=== PATIENT | female | born 1975 | race African-American/Black ===

== ENCOUNTER 2020-03-27 08:52 | Outpatient (CLI) | payer OTHER, SELFPAY ==
--- NOTE | ~2020-03-27 | MM_ITS ---
EXAMINATION: MM screening [facility] BI w oanh HISTORY: Screening mammogram TECHNIQUE: Craniocaudal and mediolateral oblique 3-D tomosynthesis images were obtained and synthetic 2-D images were generated. CAD analysis was submitted and interpreted. COMPARISON: No prior mammogram is available for comparison at this institution. BREAST PARENCHYMAL COMPOSITION: The breasts are heterogeneously dense, which may obscure small masses . FINDINGS: There is no evidence of suspicious mass, calcification, or architectural distortion to sugg est malignancy in either breast. There has been no suspicious interval change. IMPRESSION: 1. No mammographic evidence of malignancy. 2. Recommend routine screening mammography in one year. BI-RADS Category 1: Negative Reviewed, dictated and finalized at location B.
== END 2020-03-27 08:53 | disposition home or self-care (01) ==
LOC: ANHIMG 08:56
PROVIDERS: PCP Emergency Medicine; Visit Provider Emergency Medicine
DX: Z12.31 Encounter for screening mammogram for malignant neoplasm of breast (principal)
CPT/HCPCS: 77063; 77067

== ENCOUNTER 2020-05-04 01:29 | Outpatient (CLI) | payer OTHER, SELFPAY ==
[2020-05-04 20:39] LABS: SARS-CoV-2 RNA PCR Negative
== END 2020-05-04 01:30 | disposition home or self-care (01) ==
LOC: ANHCOVIDDT 01:29
PROVIDERS: PCP Emergency Medicine; Visit Provider Surgery
DX: Z01.818 Encounter for other preprocedural examination (principal); Z20.828 Contact with and (suspected) exposure to other viral communicable diseases
CPT/HCPCS: 87635; C9803; U0003

== ENCOUNTER 2020-05-07 01:28 | Day surgery (SDC) | payer OTHER, SELFPAY ==
[2020-04-29 13:09] VITALS: BMI 29.2
[2020-05-07] VITALS (7 sets, daily range): BP systolic 99–129; BP diastolic 59–77; PULSE 64–86; RESP 11–14; TEMP 36.1–36.3; O2SAT 100
--- NOTE | 2020-05-07 06:58 | ECG_ITS ---
Measurements Intervals [place] Rate: 65 P: 7 WV: 180 QRS: 21 QRSD: 78 T: 10 QT: 373 QTc: 389 Interpretive Statements SINUS RHYTHM WITH SINUS ARRHYTHMIA NORMAL ECG Electronically Signed On 05-07-2020 14:41:47 HYDROLOGIST by Deangelo Nesbitt D.O.
--- NOTE | 2020-05-07 09:25 | WPDANESEPPF ---
Anes - Initial Pre Proc Eval Procedure: Operation Date: 05/07/20 11:00 Proposed Procedures p Rectal Exam Under Anesthesia, Hemorrhoidectomy - Annette Harvey MD Date/Time: 05/07/20 09:25 Surgeon: Annette Harvey MD Pre Op Diagnosis: external hemorrhoid Patient Data Age: 44 Gender: F Height: 5 ft 3 in Weight: 74.84 kg Allergies Allergy/AdvReac Type Severity Reaction Status Date / Time caffeine AdvReac Migraine Verified 04/29/20 13:11 coffee (Coffea arabica) AdvReac Migraine Verified 04/29/20 13:11 Home Medications Medication Instructions Recorded Confirmed Type Vitamin C 1 tablet PO DAILY 04/29/20 05/07/20 History Vitamin D3 1 tablet PO DAILY 04/29/20 05/07/20 History atorvastatin 10 mg tablet 10 mg PO DAILY 04/29/20 05/07/20 History latanoprost 0.005 % eye drops 1 drp OPHTHALMIC (EYE) DAILY 04/29/20 05/07/20 History propranolol 60 mg capsule,24 60 mg PO DAILY 04/29/20 05/07/20 History hr,extended release rizatriptan 10 mg tablet 10 mg PO ONCE PRN 04/29/20 05/07/20 History Patient hx anesthesia problems: none Family hx anesthesia problems: none PMFSH Past Medical History Medical History Hx of migraines Hyperlipidemia Surgical History Surgical History History of hysterectomy Family History Family History Mother Hypertension Social History Social History Smoking status: Never smoker Alcohol intake: current Spiritual care concerns: No Anes - Eval Final PreProcedure Day of Procedure 05/07/20 09:25 Patient weight: overweight Heart: regular rate and rhythm Lungs: clear to auscultation Airway: Mallampati scale class II Neurological: alert and oriented Last oral intake: >/= 8 hours ASA classification: II Emergent: no Anesthetic plan: proceed Anesthesia type and monitoring: general LMA and standard monitoring Informed Consent: The patient's anesthetic plan and its attendant risks and benefits were discussed with the patient/family/POA. Questions were solicited and answers provided to the satisfaction of the patient/family/POA.
[2020-05-07] MEDS: ACETAMINOPHEN 500 MG TABLET 1000 MG PO (09:36)
[2020-05-07] MEDS: LACTATED RINGERS 1,000 ML 30 ML IV CONT (09:58)
[2020-05-07] MEDS: KETOROLAC 15 MG/ML VIAL (*BKC) IV PUSH (10:01)
--- NOTE | 2020-05-07 10:50 | WPDHPUPDATE1 ---
History and Physical Update Update Date/Time: 05/07/20 10:50 History and Physical has been reviewed, including an updated exam of the patient. There are NO changes in the patient's condition. Risks, benefits, and alternatives have been discussed and questions answered. Patient agrees to proceed with procedure.
[2020-05-07] MEDS: ceFAZolin 2 GM/D5W 50 ML 2 GM/50 ML BAG IVPB (10:58)
[2020-05-07] MEDS: LIDOCAINE HCL 2% GEL UROJET 10 ML PKG MUCOUS MEM (11:25)
--- NOTE | 2020-05-07 11:41 | PM.PROC ---
Procedure Note - Detailed Date of procedure: 05/07/20 Pre-op diagnosis: external hemorrhoid external hemorrhoids, rectal pain/bleeding Post-op diagnosis: same Procedure performed: exam under anesthesia, external hemorrhoidectomy Description of procedure: The patient was taken the operating room placed in the modified lithotomy position. After adequate induction of general anesthesia, the patient prepped and draped in the normal sterile fashion. A time-out was then done to verify the patient's identity, as well as the procedure being performed. A bilateral pudendal block was then done. I began by doing a digital rectal exam. Patient was noted to some external hemorrhoids on exam. I then used the anoscope to further examine anal canal. At this point, no internal hemorrhoids were noted. I then excised 3 external hemorrhoids using the LigaSure device. Hemostasis was noted at these areas. The largest of these areas, was at the anterior anoderm and was associated with a large skin tag. No thrombosis, infection was noted. At this point, I placed a piece of Gelfoam coated with lidocaine jelly into the rectal vault. Sterile dressing was then placed. The patient tolerated the procedure and was extubated in the operating room postop. He will be transferred recovery room in stable condition. Implants: none Anesthesia: GETA and local Surgeon: Annette Harvey MD Estimated blood loss (mL): 10 Drains: No Packing: Yes Pathology: yes Complications: No immediate complications Condition: stable Disposition: PACU Findings: external hemorrhoidectomy x 3
[2020-05-07] MEDS: fentaNYL CITRATE INJ (*CRX) 100 MCG/2 ML VIAL 25 MCG IV PUSH ×3 (12:04→12:12)
--- NOTE | 2020-05-07 13:40 | SUR.PHASEI ---
Patient is dressed and ready to go. Patient asked nurse for a note to return to work from here and RN called into the OR and requested this from Dr. Harvey. RN is waiting for Dr. Harvey to finish in the OR before discharging the patient home.
== END 2020-05-07 13:55 | disposition home or self-care (01) ==
PROVIDERS: PCP Emergency Medicine; Visit Provider Surgery
PROC: (CPT 46250; principal; 2020-05-07 11:00)
DX: K64.4 Residual hemorrhoidal skin tags (principal); E78.5 Hyperlipidemia, unspecified
CPT/HCPCS: 46250; 88304; 93005; A9270; J0690; J1100; J1885; J2250; J2405; J2704; J3010; J7120

== ENCOUNTER 2020-09-30 09:55 | Emergency (ER) | payer OTHER, SELFPAY ==
--- NOTE | 2020-09-30 10:08 | ED.URI ---
HPI - URI/Sore Throat General Chief Complaint: Upper Respiratory Infection Stated Complaint: SORE THROAT/SNEEZING/COUGH/BODY ACHES Time Seen by Provider: 09/30/20 10:08 Source: patient and RN notes reviewed Mode of arrival: ambulatory Limitations: no limitations History of Present Illness HPI Narrative: 44-year-old female presents with concern for 5-day history of body aches, sore throat, nasal congestion, facial pain, tooth pain, sinus headache, cough, sneezing. Reports she has been taking [id number] cold and flu medicine with occasional relief. She reports she has been fully vaccinated for Covid since September 04. Denies any known sick contacts. She denies fever, loss of sense of taste or smell, shortness of breath. MD elicited complaint: sore throat Related Data Home Medications Medication Instructions Recorded Confirmed Vitamin C 1 tablet PO DAILY 04/29/20 05/20/20 Vitamin D3 1 tablet PO DAILY 04/29/20 05/20/20 atorvastatin 10 mg tablet 10 mg PO DAILY 04/29/20 05/20/20 propranolol 60 mg capsule,24 60 mg PO DAILY 04/29/20 05/20/20 hr,extended release rizatriptan 10 mg tablet 10 mg PO ONCE PRN 04/29/20 05/20/20 Allergies Allergy/AdvReac Type Severity Reaction Status Date / Time caffeine AdvReac Migraine Verified 05/19/20 09:19 coffee (Coffea arabica) AdvReac Migraine Verified 05/19/20 09:19 Review of Systems Review of Systems: Narrative: CONSTITUTIONAL: Denies malaise, chills, sweats, or fever. EYES: Denies visual changes, redness, or discharge. ENT: Reports rhinorrhea, congestion, sinus pain, otalgia and sore throat. CARDIOVASCULAR: Denies chest pain, palpitations, or edema. RESPIRATORY: Reports cough. Denies dyspnea. GASTROINTESTINAL: Denies abdominal pain, nausea, vomiting, diarrhea SKIN: Denies rash or itching. MUSCULOSKELETAL: Reports myalgia. NEUROLOGIC: Reports headache. All systems reviewed & are unremarkable except as noted in HPI and below PMFSH Past Medical History Medical History Hx of migraines Hyperlipidemia Surgical History Surgical History History of hemorrhoidectomy 05/07/2020 History of hysterectomy Family History Family History Mother Hypertension Social History Social History Smoking status: Never smoker Alcohol intake: current Spiritual care concerns: No Comments At time of signature, agree with nursing past medical, surgical, social and family history. There is no relevant family history pertinent to the presenting complaint Exam Narrative: Exam Narrative: GENERAL: Well-appearing, well-nourished, and in no acute distress. HEAD: Normocephalic EYES: PERRLA, conjunctivae clear ENT: Nares clear, turbinates edematous and erythematous, clear discharge. Mucous membranes moist. TM pearly starr with dull light reflex bilaterally; no tragal tenderness. Oropharynx erythematous without lesions. Tonsils not enlarged and without exudate, no drooling, no hoarseness, no trismus, uvula midline. NECK: Supple. No lymphadenopathy CHEST: Clear to auscultation, breath sounds equal. No wheezing, rhonchi, rales, or stridor. No respiratory distress, speaks in full sentences. HEART: Regular rate and rhythm. No murmur heard. SKIN: Warm, dry, no rash. NEURO: Alert and oriented x3. PSYCH: Normal mood and affect Course Course Emergency Course: Patient is aware of diagnosis, understands and agrees to treatment plan. Anticipatory guidance given. Patient agrees to follow-up as directed and is aware of reasons to seek care at the emergency department. Portions of this record may have been created with voice recognition software Vital Signs Vital signs: Vital Signs Temperature 99 F 09/30/20 10:10 Pulse Rate 108 H 09/30/20 10:10 Respiratory Rate 16 09/30/20 1
[2020-09-30 10:10] VITALS: BP 141/84; PULSE 108; RESP 16; TEMP 37.2; O2SAT 100
== END 2020-09-30 10:36 | disposition home or self-care (01) ==
PROVIDERS: Emergency Provider Nurse Practitioner; PCP Emergency Medicine
DX: J32.9 Chronic sinusitis, unspecified (principal); J40 Bronchitis, not specified as acute or chronic; Z20.822 Contact with and (suspected) exposure to COVID-19; E78.5 Hyperlipidemia, unspecified
CPT/HCPCS: 87081; 87426; 87880; 99213; C9803; G0463

== ENCOUNTER 2021-03-31 15:25 | Outpatient (CLI) | payer OTHER, SELFPAY ==
--- NOTE | ~2021-03-31 | MM_ITS ---
EXAMINATION: MM screening [facility] BI w oanh HISTORY: Screening mammogram TECHNIQUE: Craniocaudal and mediolateral oblique 3-D tomosynthesis images were obtained and synthetic 2-D images were generated. CAD analysis was submitted and interpreted. COMPARISON: 03/27/2020 BREAST PARENCHYMAL COMPOSITION: The breasts are heterogeneously dense, which may obscure small masses . FINDINGS: There is no evidence of suspicious mass, calcification, or architectural distortion to sugg est malignancy in either breast. There has been no suspicious interval change. IMPRESSION: 1. No mammographic evidence of malignancy. 2. Recommend routine screening mammography in one year. BI-RADS Category 0: Incomplete: Needs additional imaging evaluation. Reviewed, dictated and finalized at location A.
== END 2021-03-31 15:26 | disposition home or self-care (01) ==
LOC: ANHIMG 15:27
PROVIDERS: PCP Emergency Medicine; Visit Provider Emergency Medicine
DX: Z12.31 Encounter for screening mammogram for malignant neoplasm of breast (principal)
CPT/HCPCS: 77063; 77067

== ENCOUNTER 2021-11-04 12:37 | Outpatient (CLI) | payer OTHER, SELFPAY ==
--- NOTE | ~2021-11-04 | CT_ITS ---
EXAMINATION: CT abdomen pelvis w con DATE: 11/04/2021 13:20 INDICATION: Lower abdominal pain TECHNIQUE: Computed tomography (CT) of the abdomen and pelvis was performed with 100 mL Omnipaque-350 intravenous contrast. Automated exposure control and iterative reconstruction technique were employe d. The dose-length product was 599.17 mGy-cm. COMPARISON: None FINDINGS: Lung bases are clear. Heart size is normal. No pericardial or pleural effusion. Liver, gallbladder, s pleen, pancreas, bilateral adrenal glands and kidneys are normal. Moderate amount of stool scattered throughout the colon. Normal appendix which extends into the left lower quadrant from the tip of the cecum which is in the central pelvis. Small bowel is normal. Bladder is normal. The uterus is not eleni ntified and has likely been surgically resected. Left adnexa is unremarkable. 5.2 cm cystic right adn exal lesion. Trace amount of likely physiologic free fluid in the pelvis. No abscess or free intraper itoneal gas. No pathologically enlarged abdominal or pelvic lymphadenopathy. Small wide mouthed fat-c ontaining umbilical hernia. Mild thoracic and lumbar spondylosis. IMPRESSION: 1. 5.2 cm cystic lesion at the right adnexa most likely an ovarian cyst with node evident solid soft tissue component. Could consider pelvic ultrasound for further evaluation. Reviewed, dictated and finalized at location A. IMPRESSION: 1. 5.2 cm cystic lesion at the right adnexa most likely an ovarian cyst with no de evident solid soft tissue component. Could consider pelvic ultrasound for fu rther evaluation.
[2021-11-04 14:29] LABS: Appearance Urine Clear (Clear); Bilirubin Urine Negative (Negative); Blood Urine Negative (Negative); Color Urine Yellow (Yellow); Glucose Urine UA Negative (Negative); Ketones Urine Negative (Negative); Leukocyte Esterase Ur Negative LEU/UL (Negative); Nitrate Urine Negative (Negative); Protein Urine Negative (Negative); Urobilinogen Urine 0.2 mg/dL (<2.0); pH Urine 6.5 (5.0-9.0)
[2021-11-04 14:36] LABS: Add Urine Microscopic? NO
== END 2021-11-04 12:38 | disposition home or self-care (01) ==
PROVIDERS: PCP Emergency Medicine; Visit Provider Emergency Medicine
DX: R10.30 Lower abdominal pain, unspecified (principal)
CPT/HCPCS: 74177; 81003; Q9967

== ENCOUNTER 2021-11-17 14:52 | Outpatient (CLI) | payer OTHER, SELFPAY ==
--- NOTE | ~2021-11-17 | US_ITS ---
EXAMINATION: US pelvic complete w TV DATE: 11/17/2021 15:52 INDICATION: Status post hysterectomy. Pelvic pain. Comparison:CT dated 11/04/2021 TECHNIQUE: Multiple transabdominal and endovaginal sonographic images of the pelvis performed. FINDINGS: The uterus is surgically absent. The right ovary measures 3.7 x 2.2 x 2.1 cm. There is a hypoechoic mass in the right ovary measuring 2 x 1.3 x 1.8 cm, possibly hemorrhagic cyst. Left ovary is not visualized. There is free fluid in the pelvis. There are no abnormal masses seen on either side. IMPRESSION: 1. Hypoechoic right ovarian mass measuring 2 cm, considerably decreased in size compared with prior e xamination, likely an involuting corpus luteal or hemorrhagic cyst. Reviewed, dictated and finalized at location A. IMPRESSION: 1. Hypoechoic right ovarian mass measuring 2 cm, considerably decreased in size compared with prior examination, likely an involuting corpus luteal or hemorrh agic cyst.
== END 2021-11-17 14:53 | disposition home or self-care (01) ==
PROVIDERS: PCP Emergency Medicine; Visit Provider Emergency Medicine
DX: R10.30 Lower abdominal pain, unspecified (principal)
CPT/HCPCS: 76830; 76856

== ENCOUNTER 2022-03-23 10:40 | Outpatient (CLI) | payer OTHER, SELFPAY ==
--- NOTE | ~2022-03-23 | MM_ITS ---
EXAMINATION: MM screening [facility] BI w oanh HISTORY: Screening mammogram TECHNIQUE: Craniocaudal and mediolateral oblique 3-D tomosynthesis images were obtained and synthetic 2-D images were generated. CAD analysis was submitted and interpreted. COMPARISON: 03/31/2021, 03/27/2020 bilateral screening mammogram examinations BREAST PARENCHYMAL COMPOSITION: The breasts are heterogeneously dense, which may obscure small masses . FINDINGS: There is no evidence of suspicious mass, calcification, or architectural distortion to sugg est malignancy in either breast. There has been no suspicious interval change. IMPRESSION: 1. No mammographic evidence of malignancy. 2. Recommend routine screening mammography in one year. BI-RADS Category 1: Negative Reviewed, dictated and finalized at location A.
== END 2022-03-23 10:41 | disposition home or self-care (01) ==
PROVIDERS: PCP Emergency Medicine; Visit Provider Nurse Practitioner Obstetrics & Gynecology
DX: Z12.31 Encounter for screening mammogram for malignant neoplasm of breast (principal)
CPT/HCPCS: 77063; 77067

== ENCOUNTER 2023-05-02 07:54 | Outpatient (CLI) | payer OTHER, SELFPAY ==
--- NOTE | ~2023-05-02 | MM_ITS ---
EXAMINATION: MM screening [facility] BI w oanh HISTORY: Screening TECHNIQUE: Craniocaudal and mediolateral oblique 3-D tomosynthesis images were obtained and synthetic 2-D images were generated. CAD analysis was submitted and interpreted. COMPARISON: Comparison to multiple prior studies sequentially, with oldest reviewed study dated 07/2019. BREAST PARENCHYMAL COMPOSITION: The breasts are heterogeneously dense, which may obscure small masses FINDINGS: There is no evidence of suspicious mass, calcification, or architectural distortion to sugg est malignancy in either breast. There has been no suspicious interval change. IMPRESSION: 1. No mammographic evidence of malignancy. 2. Recommend routine screening mammography in one year. BI-RADS Category 1: Negative Reviewed, dictated and finalized at location A. ANICAL CAD DRAFTER
== END 2023-05-02 07:55 | disposition home or self-care (01) ==
LOC: ANHIMG 07:57
PROVIDERS: PCP Emergency Medicine; Visit Provider Emergency Medicine
DX: Z12.31 Encounter for screening mammogram for malignant neoplasm of breast (principal)
CPT/HCPCS: 77063; 77067

== ENCOUNTER 2025-01-06 07:57 | Outpatient (CLI) | payer OTHER, SELFPAY ==
--- NOTE | ~2025-01-06 | MM_ITS ---
EXAMINATION: MM screening mariaa BI w oanh HISTORY: Screening TECHNIQUE: Craniocaudal and mediolateral oblique 3-D tomosynthesis images were obtained and synthetic 2-D images were generated. CAD analysis was submitted and interpreted. COMPARISON: Comparison to multiple prior studies sequentially, with oldest reviewed study dated 11/2020. BREAST PARENCHYMAL COMPOSITION: Dense: The breasts are heterogeneously dense, which may obscure small masses FINDINGS: There is no evidence of suspicious mass, calcification, or architectural distortion to sugg est malignancy in either breast. There has been no suspicious interval change. IMPRESSION: 1. No mammographic evidence of malignancy. 2. Recommend routine screening mammography in one year. BI-RADS Category 1: Negative Reviewed, dictated and finalized at location B.
--- OUTSIDE RECORDS SUMMARY | 2025-01-06 08:01 | XMS_ITS | Encounter Summary ---
Author Organization [facility] Address [address] [place] [address] Phone Care Team Providers Care Kitchen Steward/Stewardess Name Role Phone Humphrey Smith Primary Care Provider [phone] Cheryl Dominguez APRN, RESIDENTIAL CHILD CARE COUNSELOR Unavailable [phone] Reason for Visit * Reason Comments Medication Refill Encounter Details Date Type Department Care Team (Late st Contact Info) Description 02/26/2023 Refill [facility] - Neurology [facility] [address] [place] [id number] Cheryl Dominguez, PRICE ANALYST, RESIDENTIAL CHILD CARE COUNSELOR [address] [place] [address] Medication Refill Social History Tobacco Use Types Packs/Day Years Used Date Smoking Tobacco: Never Smokeless Tobacco: Never Alcohol Use Standard Drinks/Week Comments Never 0 (1 standard drink = 0.6 oz pur e alcohol) Comments Unknown Sex and Gender Information Value Date Recorded Sex Assigned at Not on file Legal Sex Female 1:47 PM CDT Gender Identity Not on file Sexual Orientation Not on file documented as of this encounter Miscellaneous Notes * Telephone Encounter - Radha Hensley RN - 02/28/2023 8:30 AM CDT Medication failed the protocol, provider to review and approve the medication order if appropriate. Requested Prescriptions Pending Prescriptions Disp Refills Emgality 120 MG/ML Solution Auto-injector [Pharmacy Med Name: EMGALITY 120MG/ML AUTO INJECTOR 1ML] 1 mL 5 Sig: ADMINISTER 1 ML UNDER THE SKIN EVERY 30 DAYS Not Delegated - Off Protocol Failed - 02/26/2023 12:44 PM Failed - This refill cannot be delegated Passed - Visit with relevant provider in past 12 months or upcoming 90 days Recent Visits Date Type Provider Dept 06/02/22 Office Visit Cheryl Dominguez APRN, [facility] Neurology [facility] Showing recent visits within past 365 days and meeting all other requirements Future Appointments No visits were found meeting these conditions. Showing future appointments within next 90 days and meeting all other requirements documented in this encounter Plan of Treatment Upcoming Encounters Date Type Department Care Team (Late st Contact Info) Description 02/20/2025 8:00 AM CDT [facility] [address] [place] [address] Cheryl Dominguez APRN, [facility] [address] [place] [address] documented as of this encounter Visit Diagnoses Diagnosis Chronic migraine with aura documented in this encounter Care Teams Kitchen Steward/Stewardess Relationship Specialty Start Date End Date Humphrey Smith [facility] [place] [address] PCP - General Family Medicine 12/01/20 Cheryl Dominguez APRN, [facility] [address] [place] [address] Nurse Practitioner Advanced Practice Nurse 06/02/22 documented as of this encounter
--- OUTSIDE RECORDS SUMMARY | 2025-01-06 08:01 | XMS_ITS | Clinical Summary ---
Author Organization [facility] Address [address] [place] [address] Phone Care Team Providers Care Supervisor Paste Mixing Name Role Phone Humphrey Smith Primary Care Provider [phone] Cheryl Dominguez APRN, [employer] Unavailable [phone] Allergies Active Allergy Reactions Criticality Noted Date Comments Caffeine Unknown 04/16/2013 Headaches Chocolate Other (see Comments) 02/19/2021 headaches Medications atorvastatin (LIPITOR) 10 MG Tablet Take 10 mg by mouth daily. Active ibuprofen (MOTRIN) 600 MG Tablet Take 600 mg by mouth every 8 hours. Active Multiple Vitamin (MULTIVITAMIN PO) Take by mouth. Activ e rizatriptan (Maxalt-DEPARTMENT MANAGER) 10 MG TABLET DISPERSIBLEIndi cations:Chronic migraine with aura without status migrainosus, not intractable Take 1 Tablet by mouth daily as needed for Migraine. 10 Tablet 6 4 Active Galcanezumab-gn lm (Emgality) 120 MG/ML Solution Auto-injectorIn dications:Chron ic migraine with aura without status migrainosus, not intractable 120 mg by Subcutaneous route every 30 days. 1 mL 5 5 Active Active Problems No known active problems Family History Medical History Relation Name Comments Hypertension Brother Stroke Father Relation Name Status Comments Brother Father Mother Social History Tobacco Use Types Packs/Day Years Used Date Smoking Tobacco: Never Smokeless Tobacco: Never Tobacco Cessation:Counseling Given: Not Answered Alcohol Use Standard Drinks/Week Comments Never 0 (1 standard drink = 0.6 oz pur e alcohol) Comments Unknown Sex and Gender Information Value Date Recorded Sex Assigned at Not on file Legal Sex Female 1:47 PM CDT Gender Identity Not on file Sexual Orientation Not on file Last Filed Vital Signs Vital Sign Reading Time Taken Comments Blood Pressure 120/84 08/19/2024 3:56 PM BMX RIDER Pulse 76 08/19/2024 3:56 PM BMX RIDER Temperature 36.9 C (98.4 F) 08/19/2024 3:56 PM BMX RIDER Respiratory Rate 17 08/19/2024 3:56 PM BMX RIDER Oxygen Saturation 99% 08/07/2023 9:20 AM BMX RIDER Inhaled Oxygen Concentration - - Weight 74.4 kg (164 lb) 08/19/2024 3:56 PM BMX RIDER Height 162.6 cm (5' 4) 08/19/2024 3:56 PM BMX RIDER Body Mass Index 28.15 08/19/2024 3:56 PM BMX RIDER Plan of Treatment Upcoming Encounters Date Type Department Care Team (Late st Contact Info) Description 02/20/2025 8:00 AM CDT Office Visit [facility] - [facility] [address] [place] [address] Cheryl Dominguez, GENERAL PARTNER, [employer] [address] [place] [address] Health Maintenance Due Date Last Done Comments Hepatitis C Virus (HCV) Screening 1975 Mammogram 1973 Cologuard 2018 Colonoscopy 2018 Colorectal Cancer Screening 2018 Immunochemical Fecal Occult Blood 2018 Pneumococcal Immunization (50+ years) (1 of 1 - PCV) 12/28/2023 Zoster Immunization (1 of 2) 12/28/2023 SARS-COV-2 Immunization ( - 2023- season) 2024 06/07/2021, 09/04/2020, 08/07/2020 Influenza Immunization (#1) 02/24/202506/26, 06/08/2022, 03/25/2021, Additional history exists Respiratory Syncytial Virus (RSV) Immunization (Adult) (1 - 1-dose 75+ series) 2048 Hepatitis B Immunization Completed 007, 03/13/2006, 02/10/2006 Meningococcal Immunization (ACWY) Aged Out 10/17/2008 No longer eligible based on patient's age to complete this topic TdaP Immunization Completed 02/16/2011 DTaP/Tdap/Td Immunization Discontinued 2020, 02/16/2011, 03/21/2000 Human Papillomavirus (HPV) Immunization Aged Out No longer eligible based on patient's age to complete this topic Rotavirus Immunization Aged Out No lo nger eligible based on patient's age to complete this topic Insurance [facility] Care Teams Supervisor Paste Mixing Relationship Specialty Start Date End Date Humphrey Smith [address] [place] [address] PCP - General Family Medicine 12/01/20 Cheryl Dominguez APRN, [employer] [address] [place] [address] Nurse Practitioner Advanced Practice Nurse 06/02/22
--- OUTSIDE RECORDS SUMMARY | 2025-01-06 08:01 | XMS_ITS | Patient Health Record ---
Author Organization [facility] Address [address] [place], [place] [address] Care Team Providers Care Zigzagger Name Role Phone Migration, Provider Unavailable Unavailable Reason For Referral No Information Medications Medication SIG (Take, Route, Frequency, Duration) Notes Start Date End Date Status Lipitor 10 MG 1 TAB ORAL QD; Duration: 30 DAYS *Please review and pick correct strength-formulatio n from Jule Game options. If intended option is not shown, discontinue and re-order from Quick Search* Active Maxalt 10 MGM DIRECTED; Duration: 30 DAYS *Please review and pick correct strength-formulatio n from [employer]ule Game options. If intended option is not shown, discontinue and re-order from Quick Search* Active Azelastine HCl 137 MCG/SPRAY Solution 2 spray(s) intranasally 2 times a day; Duration: 10 day(s) 10/09/2018 Active Medrol 4 MG Tablet Therapy Pack as directed 10/09/2018 Active Ibuprofen 600 MG Tablet 1 tab(s) orally every 8 hours; Duration: 7 days 10/09/2018 Active Problems Problem Type SNOMED Code ICD Code Onset Dates Problem Status W/U Status Risk Notes Problem acute sinusitis (J32.9) Active confirmed Encounters Encounter Location Date Provider Diagnosis [facility] [address] [place], [place] [id number] 03/16/2024 Provider Migration acute sinusitis J32.9 Assessments Encounter Date Diagnosis (ICD Code) Assessment Notes Treatment Notes Treatment Clinical Notes Section Notes 03/16/2024 acute sinusitis (ICD-10 - J32.9) Plan Of Treatment Pending Test Test Name Order Date Rapid Strep 10/09/2018 Insurance Providers Payer Name Payer Address Payer Phone Subscriber Number Group Number Insured Name Patient Relationship to Insured Coverage Start Date Coverage End Date HEALTH [employer], [place] [employer], [facility] [address] [place] [phone] [id number] DON SAWYER Spouse - patient is the spouse of the insured Medical (General) History Medical History History ICD Code High cholesterol Surgical History Surgery Date(Month/Year) Total hysterectomy 2013
--- OUTSIDE RECORDS SUMMARY | 2025-01-06 08:01 | XMS_ITS | Encounter Summary ---
Author Organization [facility] Address [address] [place] [address] Phone Care Team Providers Care Cytometry Technologist Name Role Phone Humphrey Smith Primary Care Provider [phone] Cheryl Dominguez APRN, SILVERSMITH APPRENTICE Unavailable [phone] Reason for Visit * Reason Comments Medication Refill Encounter Details Date Type Department Care Team ([facility] Contact Info) Description 11/29/2021 Refill [facility] Neurology [facility] [address] [place] [phone] Cheryl Dominguez, WAREHOUSE OPERATIONS MANAGER, SILVERSMITH APPRENTICE [address] [place] [address] Medication Refill Social History Tobacco Use Types [...] on file Sexual Orientation Not on file COVID-19 Exposure Response Date Recorded In the last 10 days, have yo u been in contact with someone who was confirmed or suspected to have Coronavirus/COVID-19? No / Unsure 12/01/2021 1:21 PM CDT documented as of this encounter Plan of Treatment Upcoming Encounters Date Type Department Care Team ([facility] Contact Info) Description 02/20/2025 8:00 AM CDT Office Visit [facility] Neurology [facility] [address] [place] [phone] Cheryl Dominguez APRN, SILVERSMITH APPRENTICE [address] [place] [address] documented as of this encounter Visit Diagnoses Not on filedocumented in this encounter Care Teams Cytometry Technologist Relationship Specialty Start Date End Date Humphrey Smith [address] [place] [address] PCP - General Family Medicine 12/01/20 Chreyl Dominguez APRN, SILVERSMITH APPRENTICE [address] [place] [address] Nurse Practitioner Advanced Practice Nurse 06/02/22 documented as of this encounter
--- OUTSIDE RECORDS SUMMARY | 2025-01-06 08:01 | XMS_ITS | Encounter Summary ---
Author Organization [facility] Address [address] [place] [address] Phone Care Team Providers Care Human Resource Manager Name Role Phone Humphrey Smith Primary Care Provider [phone] Cheryl Dominguez APRN, ADVICE LINE RN Unavailable [phone] Reason for Visit * Reason Comments Medication Refill Encounter Details Date Type Department Care Team (Late st Contact Info) Description 08/05/2022 Refill [facility] [address] [place] [phone] Cheryl Dominguez APRN, ADVICE LINE RN [address] [place] [address] Medication Refill Social History Tobacco Use Types [...] on file documented as of this encounter Plan of Treatment Upcoming Encounters Date Type Department Care Team (Late st Contact Info) Description 02/20/2025 8:00 AM CDT Office Visit [facility] [address] [place] [phone] Cheryl Dominguez APRN, ADVICE LINE RN [address] [place] [address] documented as of this encounter Visit Diagnoses Diagnosis Chronic migraine with aura documented in this encounter Care Teams Human Resource Manager Relationship Specialty Start Date End Date Humphrey Smith [address] [place] [address] PCP - General Family Medicine 12/01/20 Cheryl Dominguez APRN, ADVICE LINE RN [address] [place] [address] Nurse Practitioner Advanced Practice Nurse 06/02/22 documented as of this encounter
--- OUTSIDE RECORDS SUMMARY | 2025-01-06 08:01 | XMS_ITS | Encounter Summary ---
Author Organization [facility] Address [address] [place] [address] Phone Care Team Providers Care Insulator Cutter And Former Name Role Phone Humphrey Smith Primary Care Provider [phone] Cheryl Dominguez APRN, PARKING ANALYST Unavailable [phone] Reason for Visit * Reason Comments Medication Refill Encounter Details Date Type Department Care Team (Late st Contact Info) Description 09/06/2024 Refill [facility] [address] [place] [phone] Cheryl Dominguez APRN, PARKING ANALYST [address] [place] [address] Medication Refill Social History Tobacco Use Types [...] Description 02/20/2025 8:00 AM CDT Office Visit [facility] [address] [place] [phone] Cheryl Dominguez APRN, PARKING ANALYST [address] [place] [address] documented as of this encounter Visit Diagnoses Diagnosis Chronic migraine with aura without status migrainosus, not intractable documented in this encounter Care Teams Insulator Cutter And Former Relationship Specialty Start Date End Date Humphrey Smith [address] [place] [address] PCP - General Family Medicine 12/01/20 Cheryl Dominguez APRN, PARKING ANALYST [address] [place] [address] Nurse Practitioner Advanced Practice Nurse 06/02/22 documented as of this encounter
--- OUTSIDE RECORDS SUMMARY | 2025-01-06 08:01 | XMS_ITS | Encounter Summary ---
Author Organization [facility] Address [address] [place] [address] Phone Care Team Providers Care Compliance Consultant Name Role Phone Humphrey Smith Primary Care Provider [phone] Cheryl Dominguez APRN, WORD PROCESSING OPERATOR Unavailable [phone] Reason for Visit * Reason Comments Medication Refill Encounter Details Date Type Department Care Team (Late st Contact Info) Description 05/31/2021 [facility] [place] [address] [place] [address] Cheryl Dominguez, SUPERIOR COURT CLERK, WORD PROCESSING OPERATOR [address] [place] [address] Medication Refill Social History Tobacco Use Types [...] Exposure Response Date Recorded In the last month, have you been in contact with someone who was confirmed or suspected to have Coronavirus / COVID-19? No / Unsure 05/25/2021 9:00 AM PACKAGE LINE RELIEF OPERATOR documented as of this encounter Miscellaneous Notes * Telephone Encounter - Radha Hensley RN - 05/31/2021 10:47 AM CST Last script not e-prescribed AGE LINE RELIEF OPERATOR documented in this encounter Plan of Treatment Upcoming Encounters Date Type Department Care Team (Late st Contact Info) Description 02/20/2025 8:00 AM CDT Office Visit [facility] - [facility] [address] [place] [address] Cheryl Dominguez APRN, WORD PROCESSING OPERATOR [address] [place] [address] documented as of this encounter Visit Diagnoses Not on filedocumented in this encounter Care Teams Compliance Consultant Relationship Specialty Start Date End Date Humphrey Smith [address] [place] [address] PCP - General Family Medicine 12/01/20 Cheryl Dominguez APRN, WORD PROCESSING OPERATOR [address] [place] [address] Nurse Practitioner Advanced Practice Nurse 06/02/22 documented as of this encounter
--- OUTSIDE RECORDS SUMMARY | 2025-01-06 08:02 | XMS_ITS ---
Author Organization [facility] Address [address], [place] [id number] Care Team Providers Care Machine Operator Name Role Phone Migration, Provider Unavailable Unavailable [facility]AS[facility]ISIT [facility] Encounter Medications Medication SIG (Take, Route, Frequency, Duration) Notes Start Date End Date Status Lipitor 10 MG 1 TAB ORAL QD; Duration: 30 DAYS *Please review and pick correct strength-formulatio n from [employer] options. If intended option is not shown, discontinue and re-order from Quick Search* Active Maxalt 10 MGM DIRECTED; Duration: 30 DAYS *Please review and pick correct strength-formulatio n from [employer] options. If intended option is not shown, discontinue and re-order from Quick Search* Active Azelastine HCl 137 MCG/SPRAY Solution 2 spray(s) intranasally 2 times a day; Duration: 10 day(s) 10/09/2018 Active Medrol 4 MG Tablet Therapy Pack as directed 10/09/2018 Active Ibuprofen 600 MG Tablet 1 tab(s) orally every 8 hours; Duration: 7 days 10/09/2018 Active Encounters Encounter Location Date Provider Diagnosis [facility] [address], [place] [id number] 03/16/2024 Provider Migration acute sinusitis J32.9 Assessments Encounter Date Diagnosis (ICD Code) Assessment Notes Treatment Notes Treatment Clinical Notes Section Notes 03/16/2024 acute sinusitis (ICD-10 - J32.9) Plan Of Treatment Medication Medication Name Sig Start Date Stop Date Notes Azelastine HCl 137 MCG/SPRAY Solution 2 spray(s) intranasally 2 times a day; Duration: 10 day(s) 10/09/2018 Medrol 4 MG Tablet Therapy Pack as directed 10/09/2018 Ibuprofen 600 MG Tablet 1 tab(s) orally every 8 hours; Duration: 7 days 10/09/2018 Progress Notes * KEYONA SAWYER DDOB:1975 ( 49 yo F)Acc No.[id number]:03/16/2024 Patient: KEYONA MEDINA Provider: :1975 A ge:48 Y S ex:Female Date:03/16/2024 Address:[address] [place] [address] , [place], [id number] Subjective: * Chief Complaints: * M [facility] To [facility] Conversion Encounter * Medications: T akingLipitor 10 MG 1 TAB ORAL QD Maxalt 10 MGM DIRECTED Taking Lipitor 10 MG 1 TAB ORAL QD Taking Maxalt 10 MGM DIRECTED Assessment: * Assessment: 1. a cute sinusitis - J32.9 (Primary) Plan: * Treatment: * Electronic signature of Prov ider Migration on 01/06/2025 at 08:01 AM CDT Sign off status: Pending * Provider: Date: 03/16/2024 Generated for Jabier hilario/Mikayla/Marnieitting on: 01/06/2025 08:01 AM CDT
== END 2025-01-06 07:58 | disposition home or self-care (01) ==
PROVIDERS: PCP Emergency Medicine; Visit Provider Emergency Medicine
DX: Z12.31 Encounter for screening mammogram for malignant neoplasm of breast (principal)
CPT/HCPCS: 77063; 77067

== ENCOUNTER 2025-01-19 10:17 | Emergency (ER) | payer OTHER, SELFPAY ==
--- NOTE | 2025-01-19 10:21 | ED_ITS ---
HPI - URI/Sore Throat General Chief Complaint: Upper Respiratory Infection Stated Complaint: COUGH/CHILLS/L EARACHE/SORE THROAT Time Seen by Provider: 01/19/25 10:30 Source: patient Mode of arrival: ambulatory Limitations: no limitations History of Present Illness HPI Narrative: Sahra is a 49-year-old female patient presenting to the clinic today with complaints of cough, nasal congestion, chills, left-sided ear pain, and sore throat x 4 days. She reports no known fever or body aches. Denies any chest pain or shortness of breath. 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 No known sick contacts. Related Data Home Medications ?Medication ?Instructions ?Recorded ?Confirmed ?Last Taken ?Type Vitamin C 1 tablet PO DAILY 04/29/20 05/20/20 05/04/20 History Vitamin D3 1 tablet PO DAILY 04/29/20 05/20/20 05/04/20 History atorvastatin 10 mg tablet (Lipitor) 10 mg PO DAILY 04/29/20 05/20/20 05/05/20 History propranolol 60 mg capsule,24 60 mg PO DAILY 04/29/20 05/20/20 05/05/20 History hr,extended release (Inderal LA) rizatriptan 10 mg tablet 10 mg PO ONCE PRN Migraine Headache 04/29/20 05/20/20 05/04/20 History galcanezumab-gnlm 120 mg/mL 120 mg subcut ONCE 01/19/25 Unknown History subcutaneous pen injector (Emgality Pen) latanoprost 0.005 % eye drops drp 01/19/25 Unknown History Allergies Allergy/AdvReac Type Severity Reaction Status Date / Time caffeine AdvReac Migraine Verified 01/19/25 10:34 coffee (Coffea arabica) AdvReac Migraine Verified 05/19/20 09:19 Review of Systems Review of Systems: Pertinent positives per HPI. Patient denies any fever, rash, headache, visual changes, dizziness, shortness of breath, chest pain, palpitations, nausea, vomiting, diarrhea, constipation, abdominal pain, or any urinary issues. [facility] Past Medical History Medical History Hx of migraines Hyperlipidemia Surgical History Surgical History History of hemorrhoidectomy 05/07/2020 History of hysterectomy Family History Family History Mother Hypertension Social History Social History Smoking status: Never smoker Alcohol intake: current Alcohol use details: rare Living arrangements: with family Spiritual care concerns: No Comments At the time of my signature, I reviewed and agree with the nursing past medical, surgical, social, and family history. There is no relevant family history pertinent to the patient complaint. Exam Narrative: General: Well-developed, well nourished, in no apparent distress Head: Normocephalic, atraumatic Eyes: Pupils equally round and reactive to light bilaterally, EOM intact, sclera and conjunctive clear, no discharge, lids normal Ears: Right TM intact and congested, Left TM intact, bulging, red, ear canals clear, no drainage, grossly hearing normal. Nose: Nares patent,clear nasal discharge, moderate inflammation, no sinus tenderness. Mouth: Oral pharynx red without lesions or masses, good dentition, MMM. PND Neck: Supple, trachea midline, no enlargement of anterior or posterior cervical nodes, no thyroid masses or goiter palpable. Cardio: Regular rate and rhythm, s1 and s2 normal, no murmur appreciated. Resp: Clear to auscultation bilaterally, no rhonchi, rales, wheezing or rubs Course Course Emergency Course: Portions of this record may have been created with voice recognition software. Level of Care: Express Care Visit Vital Signs Vital signs: Vital Signs Temperature 36.3 C L 01/19/25 10:39 Pulse Rate 88 01/19/25 10:39 Respiratory Rate 16 01/19/25 10:39 Blood Pressure 138/103 H 01/19/25 10:39 Pulse Oximetry 100 01/19/25 10:39 Temperature 36.3 C L 01/19/25 10:39 Pulse Rate 88 01/19/25 10:39 Respiratory Rate 16 01/19/25 10:39 Blood Pressure 126/96 H 01/19/25 10:53 Pulse Oximetry 100 01/19/25 10:39 Vital signs reviewed MDM - URI/Sore Throat MDM Narrative Medical decision making narrative: At the time of visit patient is resting comfortably on the exam table. Patient appears to be nontoxic. Complaints of cough, nasal congestion, chills, left- sided ear pain, and sore throat x 4 days. She reports no known fever or body aches. Denies any chest pain or shortness of breath. 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 COVID, influenza, and strep test were ordered in the clinic today. Plan: Patient has COVID and left otitis media. Prescription for amoxicillin was sent for otitis media. Supportive measures were discussed with the patient and they voiced understanding discharge instructions and agrees to treatment plan. Return precautions reviewed Differential Diagnosis Differential diagnosis: Likely upper respiratory infection, otitis media, sinusitis, viral infection, bronchitis, influenza, pharyngitis and other (COVID) Lab Data Labs: Lab Results 01/19/25 01/19/25 Range/Units 10:46 10:55 POC Influenza A Ag Negative (Negative) POC Influenza B Ag Negative (Negative) POC SARS CoV-2 Ag Positive (Negative) POC Grp A Strep Screen Negative (Negative) Discharge Plan Discharge Clinical Impression: Acute left otitis media, COVID-19 Patient Disposition: Home Condition: Stable Instructions: Antibiotic Form, Ear Infection (ED), How to Recover from COVID-19 at Home (ED) Additional Instructions: COVID testing is positive in the clinic today. Influenza testing and strep testing were negative. You do have an left ear infection Take prescription medications only as prescribed-amoxicillin Increase fluids and stay well hydrated Tylenol/motrin for pain/fever Flonase and OTC antihistamines as directed Vicks vapor rub to open sinuses Sinus rinses for congestion Cepacol spray, cough drops, throat lozenges, warm tea with honey/lemon, gargle salt water to soothe throat BRAT diet for diarrhea Clear liquids x 24 hours then advance as tolerated for nausea/vomiting Go to the ED if you develop a worsening in your condition- high fever not controlled by Tylenol or Motrin, dehydration, weakness, lethargy, shortness of breath, or chest pain. Follow up with your PCP in 3-5 days if symptoms persist. Patient Language: Iranian Prescriptions: New amoxicillin 875 mg tablet 875 mg PO Q12H 7 Days Qty: 14 0RF No Action ipratropium bromide 0.03 % spray,non-aerosol 2 spray NASAL TID PRN (Reason: nasal drainage) Qty: 30 0RF Rx Instructions: administer into each nostril latanoprost 0.005 % drops Emgality Pen 120 mg/mL pen injector 120 mg subcut ONCE atorvastatin [Lipitor] 10 mg tablet 10 mg PO DAILY rizatriptan 10 mg tablet 10 mg PO ONCE PRN (Reason: Migraine Headache) Rx Instructions: may repeat once after at least 2 hours propranolol [Inderal LA] 60 mg capsule,extended release 24 hr 60 mg PO DAILY Vitamin C 1 tablet PO DAILY Vitamin D3 1 tablet PO DAILY Follow-up/Referrals: Humphrey Smith MD [Primary Care Provider] - Stand Alone Forms: Work/School Release IP Time of Disposition: 10:58 Quality NIHSS Nursing Documentation ED NIHSS nursing documentation: reviewed/agree
[2025-01-19 10:39] VITALS: BP 138/103; PULSE 88; RESP 16; TEMP 36.3; O2SAT 100
[2025-01-19 10:48] LABS: EDSTREPNEGPOS1 Negative (Negative)
[2025-01-19 10:53] VITALS: BP 126/96
[2025-01-19 10:57] LABS: EDCOVIDSCREEN Positive (Negative); EDINFLUASCREEN Negative (Negative); EDINFLUBSCREEN Negative (Negative)
== END 2025-01-19 11:02 | disposition home or self-care (01) ==
PROVIDERS: Emergency Provider Nurse Practitioner Family; PCP Emergency Medicine
DX: H66.92 Otitis media, unspecified, left ear (principal); U07.1 COVID-19; E78.5 Hyperlipidemia, unspecified
CPT/HCPCS: 87081; 87426; 87804; 87880; 99213; G0463